=== PATIENT | male | born 1995 | race Two or more races ===

== ENCOUNTER 2017-07-11 13:30 | Emergency (ER) | payer MEDICAID, OTHER ==
[~2017-07-11] VITALS: Ht 180.3 cm; Wt 82.0 kg
[2017-07-11 15:03] VITALS: BP 109/73
== END 2017-07-11 18:14 | disposition left against medical advice (07) ==
LOC: ER 14:00
DX: Z53.21 Procedure and treatment not carried out due to patient leaving prior to being seen by health care provider (principal)